=== PATIENT | male | born 1995 | race Caucasian/White ===

== ENCOUNTER 2020-04-01 20:58 | Emergency (ER) | payer SELFPAY ==
[~2020-04-01] VITALS: Ht 170.2 cm; Wt 88.0 kg
[2020-04-01 21:04] VITALS: Ht 170.2 cm; Wt 88.0 kg
[2020-04-01 21:55] VITALS: BP 121/73
== END 2020-04-01 21:55 | disposition home or self-care (01) ==
LOC: ED 20:58
DX: T17.228A Food in pharynx causing other injury, initial encounter (principal); W45.8XXA Other foreign body or object entering through skin, initial encounter; Y93.89 Activity, other specified; Y92.89 Other specified places as the place of occurrence of the external cause; Y99.8 Other external cause status